=== PATIENT | male | born 1990 | race Asian ===

== ENCOUNTER 2020-12-17 15:15 | Emergency (ER) | payer OTHER ==
[~2020-12-17] VITALS: Ht 165.1 cm; Wt 61.7 kg
[2020-12-17] MEDS ORDERED: BACTRIM DS TAB1 EACH PO (16:30)
== END 2020-12-17 16:37 | disposition home or self-care (01) ==
LOC: ER 15:15
DX: L02.411 Cutaneous abscess of right axilla (principal)

== ENCOUNTER → 2022-08-08 | Emergency (ER) | payer OTHER ==
[~2022-08-08] VITALS: Ht 165.1 cm; Wt 71.2 kg
[~2022-08-08] MED LIST: BACTRIM DS TAB1 EACH PO
== END | disposition home or self-care (01) ==
LOC: ER 20:24
DX: L02.422 Furuncle of left axilla (principal)